=== PATIENT | female | born 1995 | race Hispanic/Latino ===

== ENCOUNTER 2018-03-29 21:12 | Emergency (ER) | payer SELFPAY ==
[2018-03-29 21:20] VITALS: BMI 24.3
[2018-03-29 21:36] VITALS: O2SAT 98
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
[2018-03-29 23:34] VITALS: BP 125/68; PULSE 88; RESP 17; TEMP 98.2
== END 2018-03-29 23:34 | disposition home or self-care (01) ==
LOC: ED 21:12
DX: F10.10 Alcohol abuse, uncomplicated (principal)